=== PATIENT | male | born 1945 | race Caucasian/White ===

== ENCOUNTER → 2018-06-07 | Outpatient (CLI) | payer MEDICARE ==
[~2018-06-07] MED LIST: BUPIVACAINE HCL 0.5% 10 ML VIAL As Ordered ONE; HEPARIN 1,000 UNITS/ML 10ML VIAL (FOR RADIOLOGY& DIALYSIS ONLY) As Ordered ONE; ISOVUE-300 61% 100ML VIAL (Q9967) As Ordered ONE; LIDOCAINE 2% MDV 20 ML VIAL As Ordered ONE; MIDAZOLAM INJ 2 MG/2 ML VIAL (J2250) As Ordered ONE; PROTAMINE SULF INJ 50 MG/5 ML VIAL (J2720) As Ordered ONE; diphenhydrAMINE INJ 50MG/ML VIAL (J1200) As Ordered ONE; fentaNYL 100 MCG/2 ML INJECTION (J3010) As Ordered ONE
--- NOTE | 2018-06-20 11:04 | REPIR ---
DATE OF PROCEDURE: 06/07/2018 ATTENDING SURGEON: Maurice Richard MD ASSISTANTS: Contreras Pugh and Nicolette Jamison PREOPERATIVE DIAGNOSIS: Right lower extremity claudication. POSTOPERATIVE DIAGNOSIS: Right lower extremity claudication. PROCEDURES: Aortogram, iliofemoral angiogram, right lower extremity angiography, right superficial femoral and popliteal artery angioplasty with 6 x 200 balloon. 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 The patient will undergo an angiogram with possible angioplasty, stent, and/or atherectomy. Risks, benefits, and alternative options were discussed with the patient. ANESTHESIA: Was local with sedation. ESTIMATED BLOOD LOSS: Minimal. INTRAVENOUS (IV) FLUID: 100 mL. COMPLICATION: None. DRAINS: None. SPECIMENS: None. DESCRIPTION OF PROCEDURE: The patient was taken to the angiography suite and placed supine on the angiography room table. The left femoral artery was cannulated, a catheter placed in the aorta, and an aortogram was performed. Catheter was pulled down to the level of the bifurcation of the iliac arteries, and iliofemoral angiogram was performed. Catheter was directed over the bifurcation in the iliac arteries, and a selective right lower extremity angiogram was performed. This showed stenosis in the popliteal and superficial femoral arteries. This was angioplastied with a 6 x 200 balloon with a completion angiogram showing resolution of the stenosis with excellent flow into the tibial vessels. The patient had a 2+ palpable dorsalis pedis and posterior tibial pulse at the completion of the intervention. Catheters and wires were removed. The sheath was removed, and a Mynx closure was used close the arteriotomy in the left common femoral artery with an additional 10 minutes of adjunctive pressure applied for hemostasis. Dressings were then applied. The patient tolerated the procedure well. All instrument, sponge, and needle counts were correct at the end of the case. There were no complications. Dr. Richard was present for and directed the entire case. The patient was transferred to the holding area and subsequently to the floor in stable condition.
== END | disposition home or self-care (01) ==
LOC: M IRPRO 07:46
PROVIDERS: ATTEND Surgery Vascular Surgery
DX: I70.211 Atherosclerosis of native arteries of extremities with intermittent claudication, right leg (principal)
CPT/HCPCS: 37224; 75710; C1724; C1725; C1760; C1769; C1874; C1887; C1894; J1200; J2250; J3010; Q9967

== ENCOUNTER → 2018-06-28 | Outpatient (CLI) | payer MEDICARE ==
--- NOTE | 2018-06-28 08:44 | REP ---
Bilateral lower extremity arterial Doppler ultrasound: History: Atherosclerosis of the unga arteries. Intermittent claudication bilateral lower extremities. Status post right distal superficial femoral artery stent placement. Findings: The right superficial femoral artery stent is patent without evidence of stenosis. Pre stent peak systolic velocity is 100 cm/sec, mid stent velocity is 86 cm/S, and distal stent velocity of 76 cm/S. There is a 5:1 ratio of significant stenosis of the distal superficial femoral artery on the left. Multifocal atherosclerotic plaquing is seen bilaterally. A mild stenosis is suspected in the proximal profunda femoral artery on the left. Velocities in the left calf for generally lower than those seen on the right. Ankle brachial index is normal on the right at 1.07 and somewhat reduced on the left at 0.79. Right lower extremity arterial Doppler velocity chart: CF A 111 cm/S Profunda 123 Proximal SFA 135/171 Mid SFA 100 cm/S Distal SFA 74 Popliteal 87 Proximal AT A 88 Tibioperoneal trunk 138 Proximal RN INVASIVE 115 Distal RN INVASIVE 60 Distal AT A 65 Left lower extremity arterial Doppler velocity chart: CF A 81 cm/S Profunda 206 Proximal SFA 137 Mid SFA 71 Distal SFA 344/84 Popliteal 95 Proximal AT A 29 Tibioperoneal trunk 48 Proximal RN INVASIVE 50 Distal RN INVASIVE 43 Distal AT A 42 Electronically Signed by Dago Olivares MD 06/28/2018 08:35 A
== END ==
LOC: M RAD 06:49
PROVIDERS: ATTEND Physician Assistant
DX: I70.213 Atherosclerosis of native arteries of extremities with intermittent claudication, bilateral legs (principal); F17.210 Nicotine dependence, cigarettes, uncomplicated